=== PATIENT | female | born 1945 | race Caucasian/White ===

== ENCOUNTER 2016-09-12 02:20 | Emergency (ER) | payer OTHER ==
[~2016-09-12 02:20] MED LIST: DIAZEPAM PO; DIOVAN HCT 160/1 TAB PO; ULTRAM PO
== END 2016-09-12 02:24 | disposition left against medical advice (07) ==
LOC: CED 02:20
DX: Z53.21 Procedure and treatment not carried out due to patient leaving prior to being seen by health care provider (principal)

== ENCOUNTER → 2017-01-02 | Outpatient (CLI) | payer OTHER ==
--- NOTE | ~2017-01-02 | MY11 ---
[facility] A Service of [facility] RADIOLOGY TEXT RESULTS PATIENT: JEROME DUQUE LOCATION: [facility] : 49 UNIT #: [id number] AGE: [address]: JAVIER SHELTON SEX: F ORDER DR: [id number] [address] [id number] O MR#: [id number] Acc #: [id number] NAME: JEROME DUQUE : 1945 SEX: F STUDY DATE/TIME: 01/02/2017 13:25 UNIT: [facility] ROOM: STUDY DESCRIPTION: MY Mammogram Screening [facility] Attending Physician: Javier Shelton M.D. Referring Physician: Javier Shelton M.D. Primary Care Physician: Javier Shelton M.D. MEDICAL IMAGING REPORT This report is preliminary unless electronic signature is present. EXAM Digital screening mammogram 01/02/2017 HISTORY 71-year-old woman positive family history, sister. COMPARISON Mammograms 03/24/2008, 12/04/2012. FINDINGS Digital imaging of each breast was completed utilizing screening protocol. Review includes FDA-approved CAD device. Breast parenchyma is partially fatty replaced. There is fibroglandular dominance remaining in the right breast. This is stable to less conspicuous. I see no suspicious mass. There are no interval occurring microcalcifications and no architectural deformity. IMPRESSION Negative mammogram. Annual screening recommended. Patients over the age of 40 are entered into a reminder system with target due date for the next mammogram. A result letter will also be sent to the patient. BIRADS: 1 Negative Dictated by... Piero Croft M.D. THIS IS AN ELECTRONICALLY VERIFIED REPORT Piero Croft M.D. at 01/03/2017 7:04 AM [facility] A Service of [facility] RADIOLOGY TEXT RESULTS PATIENT: JEROME DUQUE LOCATION: [facility] : 49 UNIT #: [id number] AGE: [address]: JAVIER SHELTON SEX: F ORDER DR: MONTSE/niranjan TD: 01/03/2017 06:04 JOB #: [id number] MEDICAL IMAGING REPORT Page 1 of 1
== END | disposition home or self-care (01) ==
LOC: SMAM 12-27 10:45
DX: Z12.31 Encounter for screening mammogram for malignant neoplasm of breast (principal); Z80.3 Family history of malignant neoplasm of breast
CPT/HCPCS: G0202